=== PATIENT | male | born 1975 | race Caucasian/White ===

== ENCOUNTER 2016-12-09 22:46 | Emergency (ER) | payer MEDICAID, OTHER ==
[~2016-12-09] VITALS: Ht 172.7 cm; Wt 72.6 kg
[2016-12-10 04:21] VITALS: BP 114/74
[2016-12-10] MEDS ORDERED: IBUPROFEN 800 MG TAB PO ONE (04:45)
== END 2016-12-10 05:26 | disposition home or self-care (01) ==
LOC: ER 22:46
DX: S60.221A Contusion of right hand, initial encounter (principal); F12.10 Cannabis abuse, uncomplicated; F17.200 Nicotine dependence, unspecified, uncomplicated; Y04.0XXA Assault by unarmed brawl or fight, initial encounter; Y93.89 Activity, other specified; Y92.89 Other specified places as the place of occurrence of the external cause; Y99.8 Other external cause status
CPT/HCPCS: 73130

== ENCOUNTER 2017-02-13 12:49 | Emergency (ER) | payer MEDICAID ==
[~2017-02-13] VITALS: Ht 177.8 cm; Wt 75.7 kg
[2017-02-13 16:15] VITALS: BP 112/62
[2017-02-13] MEDS ORDERED: HYDROcodone-ACET 10/325MG TAB PO ONE (17:15)
[2017-02-13] MEDS ORDERED: TETANUS-DIPTH-ACEL PERTUSSIS 0.5ML SYRG IM ONE (17:15)
== END 2017-02-13 17:31 | disposition home or self-care (01) ==
LOC: ER 12:52
DX: S60.462A Insect bite (nonvenomous) of right middle finger, initial encounter (principal); F17.200 Nicotine dependence, unspecified, uncomplicated; W57.XXXA Bitten or stung by nonvenomous insect and other nonvenomous arthropods, initial encounter; Y93.89 Activity, other specified; Y92.89 Other specified places as the place of occurrence of the external cause; Y99.8 Other external cause status
CPT/HCPCS: 90471; 90715

== ENCOUNTER 2017-02-15 12:10 | Emergency (ER) | payer MEDICAID ==
[~2017-02-15] VITALS: Ht 177.8 cm; Wt 75.7 kg
[2017-02-15 12:27] VITALS: BP 116/70
== END 2017-02-15 15:00 | disposition left against medical advice (07) ==
LOC: ER 12:10
DX: T63.301A Toxic effect of unspecified spider venom, accidental (unintentional), initial encounter (principal); Z53.21 Procedure and treatment not carried out due to patient leaving prior to being seen by health care provider; W57.XXXA Bitten or stung by nonvenomous insect and other nonvenomous arthropods, initial encounter; Y93.89 Activity, other specified; Y92.89 Other specified places as the place of occurrence of the external cause; Y99.8 Other external cause status